=== PATIENT | female | born 1990 | race Caucasian/White ===

== ENCOUNTER 2025-01-30 18:56 | Emergency (ER) | payer OTHER ==
[~2025-01-30] VITALS: Ht 157.5 cm; Wt 68.0 kg
[2025-01-30 19:53] VITALS: PULSE 86; RESP 17; TEMP 99
[2025-01-30] MEDS: KETOROLAC TROMETHAMINE 60 MG/2 ML VIAL IM STA (20:04)
[2025-01-30] MEDS ORDERED: ULTRAM 50MG50 MG PO (23:14)
[2025-01-30] MEDS: Morphine 4mg INJECTION 4 MG/ML INJ IM STA (23:47)
[2025-01-31 00:14] VITALS: BP 122/74; PULSE 78; RESP 18; O2SAT 98
== END 2025-01-31 00:16 | disposition home or self-care (01) ==
LOC: ER 19:00
DX: S06.0X0A Concussion without loss of consciousness, initial encounter (principal); R07.89 Other chest pain; M54.9 Dorsalgia, unspecified; V43.52XA Car driver injured in collision with other type car in traffic accident, initial encounter; Y92.488 Other paved roadways as the place of occurrence of the external cause; M41.9 Scoliosis, unspecified; L40.9 Psoriasis, unspecified
CPT/HCPCS: 70450; 71250; 72125; 72131; 81025; 99284; J1885; J2270